=== PATIENT | male | born 1965 | race Hispanic/Latino ===

== ENCOUNTER 2019-02-18 10:19 | Outpatient (CLI) | payer OTHER ==
--- NOTE | 2019-02-18 20:46 | RAD ---
RIGHT SHOULDER THREE VIEWS: Date: 02-18-19 FINDINGS: One of three views shows a linear piece of bone just below the glenoid fossa of the scapula. There do es appear to be some irregularity along the inferior lip of the glenoid, so this is presumed to be an avulsed fragment. MRI would probably show any damage better. There are degenerative changes in the A C joint. There is no widening of the joint. No dislocation of the shoulder is present. The visible po rtions of the right ribs were unremarkable. IMPRESSION: Presumed avulsion of bone from the inferior lip of the glenoid fossa. Code T POS: HOME
--- NOTE | 2019-02-18 20:47 | RAD ---
RIGHT HUMERUS THREE VIEWS: Date: 02-18-19 FINDINGS: A piece of bone is seen just medial to the elbow joint on the lateral view suggesting that there may be some loose bodies in the joint. There is also slight deformity of the radial head. All of these fi ndings appear old and not new. They are in keeping with prior trauma to the region. No joint effusion was seen. IMPRESSION: Evidence of old traumatic changes to the elbow joint but no acute fracture appreciated. POS: HOME
== END 2019-02-18 10:20 | disposition home or self-care (01) ==
LOC: BURRAD 10:19
PROVIDERS: ATTEND Family Medicine
DX: M25.511 Pain in right shoulder (principal); M79.621 Pain in right upper arm

== ENCOUNTER 2021-02-16 16:56 | Emergency (ER) | payer BC, OTHER, SELFPAY ==
[2021-02-16] MEDS ORDERED: methylPREDNISolone Sod Succ/PF 125 MG/2 ML VIAL ONE (17:12)
[2021-02-16] MEDS ORDERED: Piperacillin/Tazobactam 4.5 GM VIAL ONE (17:12)
[2021-02-16] MEDS ORDERED: Sodium Chloride 0.9% 100 ML ONE (17:13)
[2021-02-16 17:41] LABS: #Basophils 0.1 thou/uL (0.0-0.2); #Monocytes 0.8 thou/uL (0.11-0.59); %Basophils 0.5 % (0.0-1.0); %Lymphocytes 7.4 % (21.0-51.0); %Monocytes 5.9 % (0.0-10.0); %Neutrophils 86.2 % (42.0-75.0); Hemoglobin 15.7 g/dL (14.0-18.0); Mean Corpuscular HGB CONC 36.1 g/dL (32.0-36.0); Mean Corpuscular Hemoglobin 32.6 pg (27.0-31.0); Mean Corpuscular Volume 90.3 fL (78.0-98.0); Mean Platelet Volume 6.9 fL (7.4-10.4); Platelet Count 237 thou/uL (130-400); RBC Distribution Width 11.2 % (11.5-14.5); Red Blood Cell (RBC) Count 4.82 mill/uL (4.70-6.10); White Blood Cell (WBC) Count 12.8 thou/uL (4.8-10.8)
[2021-02-16 17:55] LABS: ALT (SGPT) 70 U/L (8-55); AST (SGOT) 163 U/L (5-34); Albumin 3.8 g/dL (3.5-5.0); Alkaline Phosphatase 149 U/L (40-110); Anion Gap 25 mmol/L (10-20); BUN (Urea Nitrogen) 11 mg/dL (8.4-25.7); Bilirubin, Total 1.4 mg/dL (0.2-1.2); Calc. Creatinine Clearance 0 mL/min (70-130); Calcium 8.1 mg/dL (7.8-10.44); Carbon Dioxide 18 mmol/L (22-29); Chloride 89 mmol/L (98-107); Globulin 2.9 g/dL (2.4-3.5); Glucose 153 mg/dL (70-105); Protein, Total 6.7 g/dL (6.0-8.3); Sodium 129 mmol/L (136-145)
[2021-02-16] MEDS ORDERED: Vancomycin 1.5 GRAM/300 ML BAG ONE (19:30)
== END 2021-02-16 19:37 | disposition home or self-care (01) ==
LOC: BURERS 16:56
DX: K20.90 Esophagitis, unspecified without bleeding (principal); E87.2 Acidosis; R00.0 Tachycardia, unspecified; I10 Essential (primary) hypertension
CPT/HCPCS: 36415; 70491; 80053; 83605; 84484; 85025; 87040; 93005; 96365; 96375; J2543; J2930; J3370; J3490